=== PATIENT | male | born 1980 | race Caucasian/White ===

== ENCOUNTER → 2023-10-22 15:24 | Outpatient (BNVA) | payer OTHER, SELFPAY | PROVIDERS: Family Provider Registered Nurse; PCP Registered Nurse; Visit Provider Registered Nurse | DX: Z13.1 Encounter for screening for diabetes mellitus (principal); N52.9 Male erectile dysfunction, unspecified | CPT/HCPCS: 80053; 83036; 85025; 87491; 87591 ==

== ENCOUNTER 2024-02-27 02:01 | Emergency (ER) | payer OTHER, SELFPAY ==
[2024-02-27] VITALS (7 sets, daily range): BP systolic 110–147; BP diastolic 71–109; PULSE 76–111; RESP 16; TEMP 36.4; O2SAT 97–100; BMI 29.7
[2024-02-27 02:35] LABS: Basophils % 0.3 %; Eosinophils # 0.2 10^3/uL (0.0-0.8); Eosinophils % 2.1 %; Hematocrit 46.5 % (37-53); Lymphocytes # 2.1 10^3/uL (0.8-4.8); Lymphocytes % 18.3 %; Mean Corpuscular Hemoglobin 28.9 pg (27-33); Mean Platelet Volume 9.1 fL (7.4-10.4); Monocytes % 8.5 %; Neutrophils # 7.87 10^3/uL (1.8-7.7); Neutrophils % 70.4 %; Nucleated Red Blood Cells % 0 %; Platelet Count 384 10^3/cmm (157-399); Red Blood Count 5.47 10^6/uL (3.85-5.65); Red Cell Distribution Width 11.9 % (12.1-15.1); White Blood Count 11.18 10^3/uL (3.29-11.43)
[2024-02-27 02:58] LABS: Alanine Aminotransferase 45 U/L (0-41); Albumin Level 4.5 g/dL (3.5-5.2); Alkaline Phosphatase 134 U/L (40-130); Anion Gap 14.1 (5-19); Aspartate Amino Transferase 28 U/L (0-40); Blood Urea Nitrogen 15 mg/dL (6-20); C Reactive Protein 7.4 mg/L (0.0-4.9); Calcium 10.1 mg/dL (8.5-10.5); Carbon Dioxide 28 mmol/L (22-29); Chloride 101 mmol/L (98-107); Globulin 3.3 g/dL (1.3-4.6); Glomerular Filtration Rate 92.1 mL/min (90-130); Glucose 123 mg/dL (65-115); Lipase 27 U/L (13-60); Osmolality Calculated 290 mOsm/kg (285-295); Potassium 4.1 mmol/L (3.5-5.1); Sodium 139 mmol/L (136-145); Total Bilirubin 0.3 mg/dL (0.15-1.2); Total Protein 7.8 g/dL (6.6-8.7)
[2024-02-27 03:00] LABS: Lactic Sepsis W/Reflex 2.2 mmol/L (0.5-2.2)
--- NOTE | 2024-02-27 03:10 | CTR_ITS ---
PROCEDURE INFORMATION: Exam: CT Abdomen And Pelvis With Contrast Exam date and time: 02/27/2024 3:42 AM Age: 43 years old Clinical indication: Abdominal pain; Localized; Right lower quadrant (rlq) TECHNIQUE: Imaging protocol: Computed tomography of the abdomen and pelvis with contrast. Radiation optimization: All CT scans at this facility use at least one of these dose optimization techniques: automated exposure control; mA and/or kV adjustment per patient size (includes targeted exams where dose is matched to clinical indication); or iterative reconstruction. Contrast material: OMNI 350; Contrast volume: 100 ml; Contrast route: INTRAVENOUS (IV); COMPARISON: No relevant prior studies available. RADIATION DOSE METRICS: Total DLP (mGy-cm): 771.68 FINDINGS: Lungs: Lung bases are clear as visualized. Liver: The liver is normal in appearance. Gallbladder and biliary ducts: No definite gallstones are appreciated within the gallbladder. However, the gallbladder wall is somewhat hazy suggesting wall thickening. There may be a small amount of fluid interposed between the gallbladder and liver. Findings can be seen in a cholecystitis. Recommend clinical correlation. If patient is having symptoms referable to the gallbladder, recommend correlation with ultrasound. Pancreas: Normal. No ductal dilation. Spleen: Normal. No splenomegaly. Adrenal glands: Normal. No mass. Kidneys and ureters: Normal. No hydronephrosis. Stomach and bowel: No dilated loops of large or small bowel is appreciated. No bowel wall thickening is noted. There is a moderate amount of stool within the colon. Appendix: No evidence of appendicitis. Intraperitoneal space: Unremarkable. No free air. No significant fluid collection. Vasculature: Unremarkable. No abdominal aortic aneurysm. Lymph nodes: There are a few small mesenteric, periportal and retroperitoneal lymph nodes. No enlarged nodes are appreciated. Urinary bladder: Unremarkable as visualized. Reproductive: Unremarkable as visualized. Bones/joints: Unremarkable. No acute fracture. Soft tissues: There is a tiny fat filled periumbilical hernia. CT/CT abdomen pelvis w con* [id number] IMPRESSION: 1. Some haziness to the gallbladder wall with possible small amount of fluid interposed between the gallbladder and liver. Findings could represent gallbladder inflammation. If patient is having symptoms referable to the gallbladder, recommend correlation with ultrasound. 2. Fecal stasis.
[2024-02-27 03:15] LABS: Reflex Lactate Order REFLEX LACTIC ORDERD
[2024-02-27] MEDS: iohexol 350 mg/mL 500 mL Btl (per mL) IV (03:45)
--- NOTE | 2024-02-27 04:06 | ED_ITS ---
Documented by User: Miriam Adame MD 02/27/24 04:09 HPI - Abdominal Pain 2 General: Chief Complaint: Abdominal Pain Stated Complaint: right side abdominal pain Time Seen by Provider: 02/27/24 03:53 History of Present Illness: 43-year-old man who presents emergency r oom with right-sided abdominal pain. This started about 3 hours ago. He has had some nausea but no vomiting. No dysuria. No fevers. No chest pain. No shortness of breath. He has never had anything like this before. No surgical history. No fevers. Related Data Previous Rx's Medication Instructions Recorded sildenafil 50 mg tablet (Viagra) 50 mg PO DAILY PRN sexual activity 10/25/23 30 days #10 tabs amoxicillin 875 mg-potassium 1 tab PO Q12H 10 days #20 tabs 02/27/24 clavulanate 125 mg tablet naproxen 250 mg tablet 250 mg PO BID PRN pain #20 tabs 02/27/24 ondansetron 4 mg disintegrating 4 mg PO Q6H PRN nausea and 02/27/24 tablet vomiting #14 tabs Allergies Allergy/AdvReac Type Severity Reaction Status Date / Time No Known Allergies Allergy Verified 10/22/23 14:43 Review of Systems 2 Narrative: Constitutional symptoms: Negative except as documented in HPI. Skin symptoms: Negative except as documented in HPI. Eye symptoms: Negative except as documented in HPI. ENMT symptoms: Negative except as documented in HPI. Respiratory symptoms: Negative except as documented in HPI. Cardiovascular symptoms: Negative except as documented in HPI. Gastrointestinal symptoms: Negative except as documented in HPI. Genitourinary symptoms: Negative except as documented in HPI. Musculoskeletal symptoms: Negative except as documented in HPI. Neurologic symptoms: Negative except as documented in HPI. Psychiatric symptoms: Negative except as documented in HPI. Endocrine symptoms: Negative except as documented in HPI. PFSH ED 2 PFSH: Family History Grandfather Cancer Denies family history of Diabetes Hypertension Social History Smoking and tobacco/nicotine status: current every day tobacco/nicotine user cigarettes Packs smoked per day: 1 Alcohol intake: never Substance/Drug Use: never Adopted: No Caregiver/support person: No Lives independently: No Household members: children Sexually active: Yes Do you think of yourself as: Straight/Heterosexual Current gender identity: Male Physical Exam 2 Narrative: EXAM NARRATIVE: General: Alert, no acute distress. Skin: Warm, dry. Head: Normocephalic, atraumatic. Neck: Supple, trachea midline. Eye: Extraocular movements are intact. Ears, nose, mouth and throat: mucosa moist. Cardiovascular: Regular, Normal peripheral perfusion. Respiratory: Lungs are clear to auscultation, respirations are non-labored, breath sounds are equal, Symmetrical chest wall expansion. Gastrointestinal: Soft, right upper quadrant tenderness to palpation with some lesser tenderness in the lower right abdomen, Non distended Musculoskeletal: Normal ROM, no deformity. Neurological: Alert and oriented, No focal neurological deficit observed. Psychiatric: Cooperative, appropriate mood & affect. Course 2 Vital Signs: Vital signs: Vital Signs Temperature 97.6 F 02/27/24 02:23 Pulse Rate 111 H 02/27/24 06:30 Respiratory Rate 16 02/27/24 02:23 Blood Pressure 128/87 02/27/24 06:30 Pulse Oximetry 97 02/27/24 06:30 Oxygen Delivery Me thod Room Air 02/27/24 06:30 MDM - Abdominal Pain Medical Decision Making Differential diagnosis for patient presenting with right upper quadrant abdominal pain including but not limited to and based on the above HPI, review of systems and physical exam: Cholelithiasis or cholecystitis. Hepatitis. Diverticulitis. Constipation. Ureterolithiasis. Urinary tract infection. Appendicitis. colitis. small bowel obstruction. crohn's flare. pancreatitis. gastritis. peptic ulcer. Aortic disection. Workup including imaging and lab work replaced based on the above differential, history and exam to evaluate differential diagnosis Lab Review: Laboratory results were reviewed and interpreted by myself the emergency room physician. Mild leukocytosis with white count of 11,000. No anemia. No renal failure. Liver enzymes are normal. CRP is mildly elevated at 7. Lipase is negative. Lab Data 02/27/24 02:18 02/27/24 02:18 Labs/Radiology: Radiology Impressions Abdomen/Pelvis CT 02/27/24 03:10 IMPRESSION: 1. Some haziness to the gallbladder wall with possible small amount of fluid interposed between the gallbladder and liver. Findings could represent gallbladder inflammation. If patient is having symptoms referable to the gallbladder, recommend correlation with ultrasound. 2. Fecal stasis. Laboratory Results WBC 11.18 10^3/uL (3.29-11.43) 02/27/24 02:18 RBC 5.47 10^6/uL (3.85-5.65) 02/27/24 02:18 Hgb 15.80 g/dL (11.27-16.99) 02/27/24 02:18 Hct 46.5 % (37-53) 02/27/24 02:18 MCV 85.0 fl (82-101) 02/27/24 02:18 MCH 28.9 pg (27-33) 02/27/24 02:18 MCHC 34.0 g/dL (30-55) 02/27/24 02:18 RDW 11.9 % (12.1-15.1) L 02/27/24 02:18 Plt Count 384 10^3/cmm (157-399) 02/27/24 02:18 MPV 9.1 fL (7.4-10.4) 02/27/24 02:18 Neut % (Auto) 70.4 % 02/27/24 02:18 Lymph % (Auto) 18.3 % 02/27/24 02:18 [place] % (Auto) 8.5 % 02/27/24 02:18 Eos % (Auto) 2.1 % 02/27/24 02:18 Baso % (Auto) 0.3 % 02/27/24 02:18 Neut # (Auto) 7.87 10^3/uL (1.8-7.7) H 02/27/24 02:18 Lymph # (Auto) 2.1 10^3/uL (0.8-4.8) 02/27/24 02:18 [place] # (Auto) 1.0 10^3/uL (0.2-0.9) H 02/27/24 02:18 Eos # (Auto) 0.2 10^3/uL (0.0-0.8) 02/27/24 02:18 Baso # (Auto) 0.0 10^3/uL (0.0-0.1) 02/27/24 02:18 Nucleated RBC % (auto) 0 % 02/27/24 02:18 Nucleated RBCs # 0.0 /100WBC 02/27/24 02:18 Sodium 139 mmol/L (136-145) 02/27/24 02:18 Potassium 4.1 mmol/L (3.5-5.1) 02/27/24 02:18 Chloride 101 mmol/L (98-107) 02/27/24 02:18 Carbon Dioxide 28 mmol/L (22-29) 02/27/24 02:18 Anion Gap 14.1 (5-19) 02/27/24 02:18 BUN 15 mg/dL (6-20) 02/27/24 02:18 Creatinine 0.9 mg/dL (0.7-1.2) 02/27/24 02:18 GFR Calculation 92.1 mL/min (90-130) 02/27/24 02:18 Glucose 123 mg/dL (65-115) H 02/27/24 02:18 Calculated Osmolality 290 mOsm/kg (285-295) 02/27/24 02:18 Lactic Acid 2.2 mmol/L (0.5-2.2) 02/27/24 02:18 Lactic Acid (Sepsis) 1.7 mmol/L (0.5-2.2) 02/27/24 04:55 Calcium 10.1 mg/dL (8.5-10.5) 02/27/24 02:18 Total Bilirubin 0.3 mg/dL (0.15-1.2) 02/27/24 02:18 AST 28 U/L (0-40) 02/27/24 02:18 ALT 45 U/L (0-41) H 02/27/24 02:18 Alkaline Phosphatase 134 U/L (40-130) H 02/27/24 02:18 C-Reactive Protein 7.4 mg/L (0.0-4.9) H 02/27/24 02:18 Total Protein 7.8 g/dL (6.6-8.7) 02/27/24 02:18 Albumin 4.5 g/dL (3.5-5.2) 02/27/24 02:18 Globulin 3.3 g/dL (1.3-4.6) 02/27/24 02:18 Lipase 27 U/L (13-60) 02/27/24 02:18 Urine Color Yellow (Yellow) 02/27/24 04:15 Urine Appearance Turbid (CLEAR) A 02/27/24 04:15 Urine pH 8.5 (5-7) A 02/27/24 04:15 Ur Specific [place] 1.045 (1.005-1.030) H 02/27/24 04:15 Urine Protein Negative (Negative) 02/27/24 04:15 Urine Glucose (UA) Negative (Normal) 02/27/24 04:15 Urine Ketones Negative (Negative) 02/27/24 04:15 Urine Blood Negative (Negative) 02/27/24 04:15 Urine Nitrate Negative (Negative) 02/27/24 04:15 Urine Bilirubin Negative (Negative) 02/27/24 04:15 Urine Urobilinogen 1.0 mg/dL (Negative) 02/27/24 04:15 Ur Leukocyte Esterase Negative (Negative) 02/27/24 04:15 Urine RBC 0-2 /hpf (0-2) 02/27/24 04:15 Urine WBC 0-5 /hpf (0-5) 02/27/24 04:15 Ur Squamous Epith Cells 0-5 /hpf (0-5) 02/27/24 04:15 Amorphous Sediment Not Reportable 02/27/24 04:15 Urine Bacteria None seen /hpf (NONE) 02/27/24 04:15 Hyaline Casts 0-4 /lpf H 02/27/24 04:15 Discharge Plan Discharge Patient Disposition: Home Clinical Impression: Acute cholecystitis Condition: Stable Prescriptions: New naproxen 250 mg tablet 250 mg PO BID PRN (Reason: pain) Qty: 20 0RF ondansetron 4 mg tablet,disintegrating 4 mg PO Q6H PRN (Reason: nausea and vomiting) Qty: 14 0RF amoxicillin-pot clavulanate 875-125 mg tablet 1 tab PO Q12H 10 Days Qty: 20 0RF No Action sildenafil [Viagra] 50 mg tablet 50 mg PO DAILY PRN (Reason: sexual activity) 30 Days Qty: 10 2RF Rx Instructions: administer 30 minutes to 4 hours before activity Discharge Orders: Discharge ED (Routine); Ordered 02/27/24 Ordered By: Kristian Palmer Referrals: Anil Sifuentes MD [Physician] - 03/02/24 (cholecystitis) Ramiro Iraheta FNP [Primary Care Provider] - Discharge Diet: Low Fat Discharge Activity: Increase activity as tolerated Patient Instructions: Cholecystitis (ED), Low Fat Diet (ED) Activity Restrictions/Additional Instructions: 1. Take antibiotics as prescribed. 2. Eat an extremely low-fat or no fat diet for the next 5 days 3. Return to ER for fever, increasing pain or pain that is not improving in, vomiting (unable to keep down meds/fluids). See handout for more details. 4. Follow-up with Dr. Mccoy on Friday 03/02. Please call ahead to schedule an appointment. 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 Fwd Documented by User: Kristian Palmer MD 02/27/24 07:06 HPI - Abdominal Pain 2 General: Chief Complaint: Abdominal Pain Stated Complaint: right side abdominal pain Time Seen by Provider: 02/27/24 03:53 Related Data Previous Rx's Medication Instructions Recorded sildenafil 50 mg tablet (Viagra) 50 mg PO DAILY PRN sexual activity 10/25/23 30 days #10 tabs amoxicillin 875 mg-potassium 1 tab PO Q12H 10 days #20 tabs 02/27/24 clavulanate 125 mg tablet naproxen 250 mg tablet 250 mg PO BID PRN pain #20 tabs 02/27/24 ondansetron 4 mg disintegrating 4 mg PO Q6H PRN nausea and 02/27/24 tablet vomiting #14 tabs Allergies Allergy/AdvReac Type Severity Reaction Status Date / Time No Known Allergies Allergy Verified 10/22/23 14:43 PFSH ED 2 PFSH: Family History Grandfather Cancer Denies family history of Diabetes Hypertension Social History Smoking and tobacco/nicotine status: current every day tobacco/nicotine user cigarettes Packs smoked per day: 1 Alcohol intake: never Substance/Drug Use: never Adopted: No Caregiver/support person: No Lives independently: No Household members: children Sexually active: Yes Do you think of yourself as: Straight/Heterosexual Current gender identity: Male Course 2 Reevaluation(s): Reevaluation #1: Patient was seen by Dr. Mccoy at bedside in the emergency department. He suspects the patient has a mild acute case of cholecystitis. He discussed with the patient and offered options including surgical management versus trial of antibiotics and diet modification. The patient reports he is feeling better after Toradol. He is already gotten a dose of Zosyn. He decided that he wanted to do nonsurgical intervention first. He is had episodes like this flareup in the past and they have gone away. He reports that he is willing to return to the emergency department if the pain persists, worsens, fever, or other worsening signs of cholecystitis. Patient's US does show gallstones, mild pericholecystic fluid, and GB wall ULN. Patient is aware of his diagnosis and has medical decision making capacity. He says he is not 1 to wall into decisions. He did rather give this a little bit of time. Will discharge home with Augmentin and Zofran. Follow-up with Dr. Mccoy on Saturday. No fat diet Vital Signs: Vital signs: Vital Signs Temperature 97.6 F 02/27/24 02:23 Pulse Rate 111 H 02/27/24 06:30 Respiratory Rate 16 02/27/24 02:23 Blood Pressure 128/87 02/27/24 06:30 Pulse Oximetry 97 02/27/24 06:30 Oxygen Delivery Me thod Room Air 02/27/24 06:30 MDM - Abdominal Pain Lab Data 02/27/24 02:18 02/27/24 02:18 Labs/Radiology: Radiology Impressions Abdomen/Pelvis CT 02/27/24 03:10 IMPRESSION: 1. Some haziness to the gallbladder wall with possible small amount of fluid interposed between the gallbladder and liver. Findings could represent gallbladder inflammation. If patient is having symptoms referable to the gallbladder, recommend correlation with ultrasound. 2. Fecal stasis. Laboratory Results WBC 11.18 10^3/uL (3.29-11.43) 02/27/24 02:18 RBC 5.47 10^6/uL (3.85-5.65) 02/27/24 02:18 Hgb 15.80 g/dL (11.27-16.99) 02/27/24 02:18 Hct 46.5 % (37-53) 02/27/24 02:18 MCV 85.0 fl (82-101) 02/27/24 02:18 MCH 28.9 pg (27-33) 02/27/24 02:18 MCHC 34.0 g/dL (30-55) 02/27/24 02:18 RDW 11.9 % (12.1-15.1) L 02/27/24 02:18 Plt Count 384 10^3/cmm (157-399) 02/27/24 02:18 MPV 9.1 fL (7.4-10.4) 02/27/24 02:18 Neut % (Auto) 70.4 % 02/27/24 02:18 Lymph % (Auto) 18.3 % 02/27/24 02:18 [place] % (Auto) 8.5 % 02/27/24 02:18 Eos % (Auto) 2.1 % 02/27/24 02:18 Baso % (Auto) 0.3 % 02/27/24 02:18 Neut # (Auto) 7.87 10^3/uL (1.8-7.7) H 02/27/24 02:18 Lymph # (Auto) 2.1 10^3/uL (0.8-4.8) 02/27/24 02:18 [place] # (Auto) 1.0 10^3/uL (0.2-0.9) H 02/27/24 02:18 Eos # (Auto) 0.2 10^3/uL (0.0-0.8) 02/27/24 02:18 Baso # (Auto) 0.0 10^3/uL (0.0-0.1) 02/27/24 02:18 Nucleated RBC % (auto) 0 % 02/27/24 02:18 Nucleated RBCs # 0.0 /100WBC 02/27/24 02:18 Sodium 139 mmol/L (136-145) 02/27/24 02:18 Potassium 4.1 mmol/L (3.5-5.1) 02/27/24 02:18 Chloride 101 mmol/L (98-107) 02/27/24 02:18 Carbon Dioxide 28 mmol/L (22-29) 02/27/24 02:18 Anion Gap 14.1 (5-19) 02/27/24 02:18 BUN 15 mg/dL (6-20) 02/27/24 02:18 Creatinine 0.9 mg/dL (0.7-1.2) 02/27/24 02:18 GFR Calculation 92.1 mL/min (90-130) 02/27/24 02:18 Glucose 123 mg/dL (65-115) H 02/27/24 02:18 Calculated Osmolality 290 mOsm/kg (285-295) 02/27/24 02:18 Lactic Acid 2.2 mmol/L (0.5-2.2) 02/27/24 02:18 Lactic Acid (Sepsis) 1.7 mmol/L (0.5-2.2) 02/27/24 04:55 Calcium 10.1 mg/dL (8.5-10.5) 02/27/24 02:18 Total Bilirubin 0.3 mg/dL (0.15-1.2) 02/27/24 02:18 AST 28 U/L (0-40) 02/27/24 02:18 ALT 45 U/L (0-41) H 02/27/24 02:18 Alkaline Phosphatase 134 U/L (40-130) H 02/27/24 02:18 C-Reactive Protein 7.4 mg/L (0.0-4.9) H 02/27/24 02:18 Total Protein 7.8 g/dL (6.6-8.7) 02/27/24 02:18 Albumin 4.5 g/dL (3.5-5.2) 02/27/24 02:18 Globulin 3.3 g/dL (1.3-4.6) 02/27/24 02:18 Lipase 27 U/L (13-60) 02/27/24 02:18 Urine Color Yellow (Yellow) 02/27/24 04:15 Urine Appearance Turbid (CLEAR) A 02/27/24 04:15 Urine pH 8.5 (5-7) A 02/27/24 04:15 Ur Specific [place] 1.045 (1.005-1.030) H 02/27/24 04:15 Urine Protein Negative (Negative) 02/27/24 04:15 Urine Glucose (UA) Negative (Normal) 02/27/24 04:15 Urine Ketones Negative (Negative) 02/27/24 04:15 Urine Blood Negative (Negative) 02/27/24 04:15 Urine Nitrate Negative (Negative) 02/27/24 04:15 Urine Bilirubin Negative (Negative) 02/27/24 04:15 Urine Urobilinogen 1.0 mg/dL (Negative) 02/27/24 04:15 Ur Leukocyte Esterase Negative (Negative) 02/27/24 04:15 Urine RBC 0-2 /hpf (0-2) 02/27/24 04:15 Urine WBC 0-5 /hpf (0-5) 02/27/24 04:15 Ur Squamous Epith Cells 0-5 /hpf (0-5) 02/27/24 04:15 Amorphous Sediment Not Reportable 02/27/24 04:15 Urine Bacteria None seen /hpf (NONE) 02/27/24 04:15 Hyaline Casts 0-4 /lpf H 02/27/24 04:15 XR interpretation done by ED provider, pending radiology final review (US images were lost (hard drive failed); they were recaptured by US tech; I viewed images in real time) Discharge Plan Discharge Patient Disposition: Home Clinical Impression: Acute cholecystitis Condition: Stable Prescriptions: New naproxen 250 mg tablet 250 mg PO BID PRN (Reason: pain) Qty: 20 0RF ondansetron 4 mg tablet,disintegrating 4 mg PO Q6H PRN (Reason: nausea and vomiting) Qty: 14 0RF amoxicillin-pot clavulanate 875-125 mg tablet 1 tab PO Q12H 10 Days Qty: 20 0RF No Action sildenafil [Viagra] 50 mg tablet 50 mg PO DAILY PRN (Reason: sexual activity) 30 Days Qty: 10 2RF Rx Instructions: administer 30 minutes to 4 hours before activity Discharge Orders: Discharge ED (Routine); Ordered 02/27/24 Ordered By: Kristian Palmer Referrals: Anil Sifuentes MD [Physician] - 03/02/24 (cholecystitis) Ramiro Iraheta FNP [Primary Care Provider] - Discharge Diet: Low Fat Discharge Activity: Increase activity as tolerated Patient Instructions: Cholecystitis (ED), Low Fat Diet (ED) Activity Restrictions/Additional Instructions: 1. Take antibiotics as prescribed. 2. Eat an extremely low-fat or no fat diet for the next 5 days 3. Return to ER for fever, increasing pain or pain that is not improving in, vomiting (unable to keep down meds/fluids). See handout for more details. 4. Follow-up with Dr. Mccoy on Friday 03/02. Please call ahead to schedule an appointment. 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
[2024-02-27 04:40] LABS: Bilirubin Urine Negative (Negative); Blood Urine Negative (Negative); Glucose Urine UA Negative (Normal); Ketones Urine Negative (Negative); Leukocyte Esterase Urine Negative (Negative); Nitrate Urine Negative (Negative); Protein Urine Negative (Negative); Urine Appearance Turbid (CLEAR); Urine Color Yellow (Yellow); pH Urine 8.5 (5-7)
[2024-02-27 04:45] LABS: Bacteria Urine None Seen /hpf; Hyaline Casts Urine 0-4 /lpf; RBC Urine 0-2 /hpf (0-2); Squamous Epithelial Cell Urine 0-5 /hpf (0-5); WBC Urine 0-5 /hpf (0-5)
[2024-02-27 04:46] LABS: Specific Gravity, Urine 1.045 (1.005-1.030)
[2024-02-27] MEDS: ketorolac 30 mg/mL INJ IVP (05:09)
[2024-02-27 05:18] LABS: Lactic Acid level (Lactate) 1.7 mmol/L (0.5-2.2)
--- NOTE | 2024-02-27 05:46 | US_ITS ---
WS: [id number] RIGHT UPPER QUADRANT ULTRASOUND HISTORY: Right upper quadrant pain, concern for cholecystitis COMPARISON: None available. Liver: 15.3 cm in length. Normal size liver and echogenicity. No bile duct dilatation or mass. Portal Vein: Normal hepatopetal flow with monophasic waveform. Gallbladder: Several small stones are present within the gallbladder. No significant gallbladder hydr ops. There is mild wall thickening and small amount of edema noted adjacent to the gallbladder. CBD: 0.4 cm Pancreas: Not visualized. Right kidney: 12.2 cm in length. Normal size and echogenicity. No hydronephrosis or mass. Aorta and IVC: Unremarkable abdominal aorta and IVC. No ascites. US/US gall bladder [id number] IMPRESSION: 1. Cholelithiasis with additional changes consistent with early acute cholecys titis. 2. No common bile duct dilatation.
[2024-02-27] MEDS: piperacillin-tazobactam 4.5 GM in sodium chloride 0.9% (plus) 50 ML IV (06:10)
--- NOTE | 2024-02-27 07:03 | P.CONIM_ITS ---
Providers/Reason For Consult 2 Consulting Physician/Specialty*: General Surgery Reason for Consult*: Acute cholecystitis Primary Care Provider: LUZ MARIA Dia History of Present Illness History of Present Illness Fish Garcia is a 43 year old male Who presents to the emergency department complaining of right upper quadrant plain Interval started last night after he got a milkshake. Pain was constant so he decided to present to the ED, in the emergency department laboratory work Was unremarkable but he was tender in the right upper quadrant so a CAT scan was obtained CAT scan showed mild haziness of the gallbladder wall indicating possible early inflammation. I was consulted for this finding Review of Systems 2 General: Reports: 10 or more systems reviewed and unremarkable except in HPI and below Medications/Allergies Home Medications Medication Instructions Recorded Confirmed Last Taken Type sildenafil 50 mg tablet (Viagra) 50 mg PO DAILY PRN sexual activity 10/25/23 Unknown Rx 30 days #10 tabs amoxicillin 875 mg-potassium 1 tab PO Q12H 10 days #20 tabs 02/27/24 Unknown Rx clavulanate 125 mg tablet naproxen 250 mg tablet 250 mg PO BID PRN pain #20 tabs 02/27/24 Unknown Rx ondansetron 4 mg disintegrating 4 mg PO Q6H PRN nausea and 02/27/24 Unknown Rx tablet vomiting #14 tabs Allergies Allergy/AdvReac Type Severity Reaction Status Date / Time No Known Allergies Allergy Verified 10/22/23 14:43 PFSH Acute 2 PFSH: Family History Grandfather Cancer Denies family history of Diabetes Hypertension Social History Smoking and tobacco/nicotine status: current every day tobacco/nicotine user cigarettes Packs smoked per day: 1 Alcohol intake: never Substance/Drug Use: never Adopted: No Caregiver/support person: No Lives independently: No Household members: children Sexually active: Yes Do you think of yourself as: Straight/Heterosexual Current gender identity: Male Vitals/I&O/Wt Last Vital Signs Temp 97.6 F 02/27/24 02:23 Pulse 111 H 02/27/24 06:30 Resp 16 02/27/24 02:23 BP 128/87 02/27/24 06:30 Pulse Ox 97 02/27/24 06:30 O2 Del Method Room Air 02/27/24 06:30 02/26/24 02/27/24 02/27/24 22:59 06:59 14:59 Intake Total 0 / 0 Balance 0 / 0 Weight last 48 hrs Weight 190 lb Physical Exam 2 Narrative: General : Patient is well developed , no acute distress, oriented x3 Head : Normal cephalic, a-traumatic. Nose : Mucous membranes are without erythema. Lungs : Equal chest rise bilaterally, no use of accessory muscles, trachea is midline. CV : Rate and rhythm are normal. Abdomen : Soft, Mild tenderness in the right upper quadrant, No Roberts sign during my evaluation Extremities : No edema. Upper extremities are normal bilaterally. Back : non-tender to palpation, no CVA tenderness. Data 02/27/24 02:18 02/27/24 02:18 A&P Assessment and plan (1) Acute cholecystitis: Plan After complete history physical examination and review of all available clinical data the following is my assessment. I think patient clinical picture is consistent with a mild grade 1 acute appendicitis. I was at the bedside when the ultrasound was being done, the gallbladder wall measures about 4 mm which is within normal limits of normal there is a very minimal amount of pericholecystic fluid, this is consistent with the possibility of an early cholecystitis. With this findings I have decided to offer the patient a laparoscopic cholecystectomy, I discussed all recent benefits of the procedure with the patient. After discussion with the patient he has about alternative options for management of his pathology as he does not want to proceed with surgery at this time, according to the patient he would like to do an elective setting, he would like to talk with the family and decide later. I have explained that we can do an attempt to IV antibiotics to manage the initial inflammation but he eventually will still need to have his gallbladder removed. Patient also requested to proceed with p.o. antibiotics at home, he will like to monitor his symptoms at home and return to the hospital as needed. I have explained to the patient that this can put him at higher risk of requiring emergent surgery in the future, I have also explained that once the inflammation is settled there may be a higher risk of injuring structures around the gallbladder. He shows understanding and he is adamant that he will prefer to get antibiotic therapy and follow-up as outpatient. We will start IV antibiotics in the hospital and then we will discharge the patient with twice a day Augmentin Zofran and pain medication. Patient has been instructed to return to the ER if he has fever chills continues abdominal pain or worsening of his symptoms. Coding Level of Care Code Acute Code for [facility] Diagnoses Acute cholecystitis K81.0
== END 2024-02-27 07:32 | disposition home or self-care (01) ==
PROVIDERS: Emergency Provider Emergency Medicine; Family Provider Registered Nurse; PCP Registered Nurse
DX: K81.0 Acute cholecystitis (principal); F17.210 Nicotine dependence, cigarettes, uncomplicated
CPT/HCPCS: 36415; 74177; 76705; 80053; 81001; 83605; 83690; 85025; 86140; 96365; 96375; 99285; J1100; J1171; J1885; J2250; J2405; J2543; J2704; J3010; J3490

== ENCOUNTER 2024-02-27 14:07 | Observation (INO) | payer OTHER, SELFPAY ==
[2024-02-27] VITALS (18 sets, daily range): BP systolic 90–126; BP diastolic 40–86; PULSE 87–130; RESP 15–18; TEMP 36.2–36.9; O2SAT 92–100; BMI 29.7; BMI 30.1
--- NOTE | 2024-02-27 15:00 | W.ED.ABDPA2 ---
HPI - Abdominal Pain General: Chief Complaint: Abdominal Pain Stated Complaint: gallbladder problems Time Seen by Provider: 02/27/24 14:55 History of Present Illness: Patient was here overnight last night with right upper quadrant pain and nausea. Patient was diagnosed with early acute cholecystitis. Patient did not want to be admitted for surgery and wanted to try antibiotics and fat-free diet. He was discharged after seeing the surgeon with Augmentin and NSAIDs. Patient reports he took a dose of Augmentin and naproxen around noon with some rory dennise and water. Unfortunately, he is continued to get worse this afternoon and has pretty severe pain at this point. Patient has changes mind and wants to proceed with surgical treatment Related Data Previous Rx's Medication Instructions Recorded sildenafil 50 mg tablet (Viagra) 50 mg PO DAILY PRN sexual activity 10/25/23 30 days #10 tabs amoxicillin 875 mg-potassium 1 tab PO Q12H 10 days #20 tabs 02/27/24 clavulanate 125 mg tablet naproxen 250 mg tablet 250 mg PO BID PRN pain #20 tabs 02/27/24 ondansetron 4 mg disintegrating 4 mg PO Q6H PRN nausea and 02/27/24 tablet vomiting #14 tabs Allergies Allergy/AdvReac Type Severity Reaction Status Date / Time No Known Allergies Allergy Verified 02/27/24 14:22 Review of Systems General: Reports: 10 or more systems reviewed and unremarkable except in HPI and below Narrative: Right upper quadrant pain, nausea, pain radiating towards the right lateral abdomen PFSH ED PFSH: Family History Grandfather Cancer Denies family history of Diabetes Hypertension Social History Smoking and tobacco/nicotine status: current every day tobacco/nicotine user cigarettes Packs smoked per day: 1 Alcohol intake: never Substance/Drug Use: never Adopted: No Caregiver/support person: No Lives independently: No Household members: children Sexually active: Yes Do you think of yourself as: Straight/Heterosexual Current gender identity: Male Physical Exam Narrative: EXAM NARRATIVE: Alert, oriented, normal mental status. Appears to be in moderate distress. He prefers to lay in a curled position. He has a positive Roberts sign with some guarding. He is heart rate is elevated. Const: COMMON NORMALS: no limitations, alert and well nourished EXAM LIMITATIONS: no altered mental status HENMT: COMMON NORMALS: normocephalic, atraumatic and external ears normal HEAD & SCALP: normocephalic and atraumatic EXTERNAL EAR: Yes external ears normal MOUTH: no muffled voice Eye: COMMON NORMALS: EOMs intact bilaterally, conjunctivae normal and no scleral icterus CONJUNCTIVA: Yes conjunctivae normal Neck/C-Spine: GENERAL: Yes normal visual inspection and Yes trachea midline Resp: COMMON NORMALS: normal respiratory effort, No use of accessory muscles and clear to auscultation bilaterally AUSCULTATION: clear to auscultation bilaterally Extremity: COMMON NORMALS: normal to inspection Neuro: COMMON NORMALS: moves all extremities, no focal motor deficits and no sensory deficits noted SENSORIUM/ORIENTATION: Yes alert SPEECH: speech normal Psych: COMMON NORMALS: mental status grossly normal, Normal thought process present, cooperative, normal affect and speech normal SPEECH: Yes normal speech THOUGHT PROCESS: Normal thought process present Skin: COMMON NORMALS: no rashes or lesions noted, turgor normal and no jaundice GENERAL SKIN EXAM: no rashes or lesions noted and turgor normal Course Vital Signs: Vital signs: Vital Signs Temperature 98.2 F 02/27/24 14:16 Pulse Rate 130 H 02/27/24 14:16 Blood Pressure 121/80 02/27/24 14:16 Pulse Oximetry 100 02/27/24 14:16 Oxygen Delivery Me thod Room Air 02/27/24 14:16 MDM - Abdominal Pain Medical Decision Making Patient has acute cholecystitis. He failed a trial of outpatient management with antibiotics and diet modification. I have notified Dr. Dr. Sifuentes who intends to see the patient in the emergency department and take him for surgery. No radiology studies performed this visit Discharge Plan Discharge Condition: Stable Prescriptions: No Action sildenafil [Viagra] 50 mg tablet 50 mg PO DAILY PRN (Reason: sexual activity) 30 Days Qty: 10 2RF Rx Instructions: administer 30 minutes to 4 hours before activity naproxen 250 mg tablet 250 mg PO BID PRN (Reason: pain) Qty: 20 0RF ondansetron 4 mg tablet,disintegrating 4 mg PO Q6H PRN (Reason: nausea and vomiting) Qty: 14 0RF amoxicillin-pot clavulanate 875-125 mg tablet 1 tab PO Q12H 10 Days Qty: 20 0RF Coding Level of Care Code ED Event Marketing Representative for Katy Ruano
--- NOTE | 2024-02-27 15:24 | P.HP_ITS ---
Providers/Chief Complaint Admitting Physician: Anil Sifuentes MD Primary Care Provider: LUZ MARIA Dia Chief Complaint: gallbladder problems History of Present Illness Fish Garcia is a 43 year old male who presents to the hospital with right upper quadrant abdominal pain. He was here earlier this morning he was diagnosed acute cholecystitis, at the time I offered surgery but the patient decided to go home on antibiotics. Now returns with worsening symptoms. Review of Systems General: Reports: 10 or more systems reviewed and unremarkable except in HPI and below Medications/Allergies Home Medications Medication Instructions Recorded Confirmed Last Taken Type sildenafil 50 mg tablet (Viagra) 50 mg PO DAILY PRN sexual activity 10/25/23 02/27/24 Unknown Rx 30 days #10 tabs amoxicillin 875 mg-potassium 1 tab PO Q12H 10 days #20 tabs 02/27/24 02/27/24 Unknown Rx clavulanate 125 mg tablet naproxen 250 mg tablet 250 mg PO BID PRN pain #20 tabs 02/27/24 02/27/24 Unknown Rx ondansetron 4 mg disintegrating 4 mg PO Q6H PRN nausea and 02/27/24 02/27/24 Unknown Rx tablet vomiting #14 tabs Allergies Allergy/AdvReac Type Severity Reaction Status Date / Time No Known Allergies Allergy Verified 02/27/24 14:22 PFSH Acute PFSH: Family History Grandfather Cancer Denies family history of Diabetes Hypertension Social History Smoking and tobacco/nicotine status: current every day tobacco/nicotine user cigarettes Packs smoked per day: 1 Alcohol intake: never Substance/Drug Use: never Adopted: No Caregiver/support person: No Lives independently: No Household members: children Sexually active: Yes Do you think of yourself as: Straight/Heterosexual Current gender identity: Male Vitals/I&O/Wt Last Vital Signs Temp 98.2 F 02/27/24 14:16 Pulse 130 H 02/27/24 14:16 BP 121/80 02/27/24 14:16 Pulse Ox 100 02/27/24 14:16 O2 Del Method Room Air 02/27/24 14:16 Weight last 48 hrs Weight 190 lb Physical Exam Narrative: General : Patient is well developed , no acute distress, oriented x3 Head : Normal cephalic, a-traumatic. Nose : Mucous membranes are without erythema. Lungs : Equal chest rise bilaterally, no use of accessory muscles, trachea is midline. CV : Rate and rhythm are normal. Abdomen : Soft, there is tenderness in the right upper quadrant. Extremities : No edema. Upper extremities are normal bilaterally. Back : non-tender to palpation, no CVA tenderness. A&P Assessment and plan (1) Acute cholecystitis: Plan This is a 43-year-old male who presents to the hospital with acute right upper quadrant abdominal pain, imaging and laboratory findings are consistent with acute cholecystitis. After discussion of all risk benefits documented my preop note we decided to proceed to the operating room for a laparoscopic, possible open cholecystectomy. All the risk and benefits of the procedure were discussed with the patient including the risks of bleeding, infection, damage to surrounding structures including liver, duodenum, colon, risk of injuring bile ducts requiring extensive surgery at higher level of care facility, risk of retained stones, bile leak, bili Zohreh, need for subtotal cholecystectomy, hernia and wound related complications, need to conversion to open procedure. Patient shows understanding and would like to proceed. Depending on operative findings patient may be able to go home today versus staying overnight in house. Attestations Medical Necessity Statement*: Pending OR findings Coding Level of Care Code Acute Code for [facility] Diagnoses Acute cholecystitis K81.0
--- NOTE | 2024-02-27 15:25 | ANES.PREANE2 ---
Pre-Anesthetic Assessment Height/Weight: Height 1.7 m Weight 86.183 kg Temp Pulse BP Pulse Ox O2 Del Method 98.2 F 123 H 116/77 98 Room Air 02/27/24 14:16 02/27/24 15:03 02/27/24 15:03 02/27/24 15:03 02/27/24 15:03 Operation Date: 02/27/24 15:30 Proposed Procedures p Laparoscopic Cholecystectomy(Not Applicable) - Anil Sifuentes MD Familial anesthetic complications: None Was Beta David taken within 24 hours: N/A Was Clonidine taken within 24 hours: N/A Last intake: Sip of rory at 1200 Social Tobacco and No alcohol Exam alert, oriented x 3, clear to auscultation bilaterally and regular rate & rhythm Airway Mallampati: Class III Dentition: other (very poor dentition, multiple missing and broken) Comments: Comments: Protruding jaw Anesthetic Plan ASA status: 2 Anesthesia: General Risk of > 500 ml blood loss (7ml/kg in children): No Medications/Allergies Home Medications Medication Instructions Recorded Confirmed Last Taken Type sildenafil 50 mg tablet (Viagra) 50 mg PO DAILY PRN sexual activity 10/25/23 02/27/24 Unknown Rx 30 days #10 tabs amoxicillin 875 mg-potassium 1 tab PO Q12H 10 days #20 tabs 02/27/24 02/27/24 Unknown Rx clavulanate 125 mg tablet naproxen 250 mg tablet 250 mg PO BID PRN pain #20 tabs 02/27/24 02/27/24 Unknown Rx ondansetron 4 mg disintegrating 4 mg PO Q6H PRN nausea and 02/27/24 02/27/24 Unknown Rx tablet vomiting #14 tabs Allergies Allergy/AdvReac Type Severity Reaction Status Date / Time No Known Allergies Allergy Verified 02/27/24 14:22 PFSH Anesthesia Family History Grandfather Cancer Denies family history of Diabetes Hypertension Social History Smoking and tobacco/nicotine status: current every day tobacco/nicotine user cigarettes Packs smoked per day: 1 Alcohol intake: never Substance/Drug Use: never Adopted: No Caregiver/support person: No Lives independently: No Household members: children Sexually active: Yes Do you think of yourself as: Straight/Heterosexual Current gender identity: Male Data Anesthesia Cardiac Studies: No Data to Display
[2024-02-27] MEDS: piperacillin-tazobactam 3.375 GM in sodium chloride 0.9% (plus) 50 ML IV ×2 (15:39→21:59)
[2024-02-27] MEDS: BUPivacaine 0.25% INJ 10 mL INJECTION (16:13)
[2024-02-27] MEDS: lidocaine-epi 1% 20 mL INJ 10 ML INJECTION (16:13)
--- NOTE | 2024-02-27 18:04 | PM.OP ---
Operative Report Date of procedure: February 27, 2024 Pre-op diagnosis: Acute cholecystitis Post-op diagnosis: Acute gangrenous cholecystitis Post-op findings: Gallbladder was extremely distended, the wall of the gallbladder was gangrenous, cystic duct appeared gangrenous. There were severe inflammatory adhesions from the omentum to the gallbladder. Procedure done: Laparoscopic cholecystectomy. Specimens removed/disposition: Gallbladder Surgeon: Anil Sifuentes MD Metal Hardener: [facility] Estimated blood loss: 20 Complications: none apparent Brief History: This is a 43-year-old male who presented today to the emergency room with abdominal pain and imaging show evidence of possible early acute cholecystitis. After discussion of all risk benefits documented my preop note with side to proceed to the OR for laparoscopic cholecystectomy Procedure: Patient was brought into the OR, he was placed in a supine position. The general anesthesia was given. The abdomen was prepped and draped in the usual sterile fashion and a timeout was conducted. Abdomen was accessed at the level of the left upper quadrant with a 5 mm Optiview trocar, initial pneumoperitoneum was obtained and no evidence of visceral injury during entry was noted. Additional 12 mm trocar was placed in the supraumbilical location under direct visualization, 5 mm trocars were placed in the epigastrium right upper quadrant and right flank under direct visualization. The patient was placed in a reverse Trendelenburg position with the left side down. The gallbladder was visualized in the right upper quadrant, was covered by omentum almost completely leaving only the dome of the gallbladder to be visible. The dome of the gallbladder appeared gangrenous. There was significant inflammatory adhesions from the omentum to the gallbladder, these were taken down with a combination of blunt and sharp dissection. Careful consideration was taken of not injuring any surrounding structures. I was able to take the adhesions all the way down to the lower third of the gallbladder but after these I was not able to grasp the gallbladder as it was significantly inflamed. I used a decompression needle and remove about 60 cc of bile from the gallbladder, after this I was able to grasp the gallbladder and elevated cephalad, I was able to take down all the adhesions revealing the infundibulum. The infundibulum was severely inflamed, there was significant inflammatory changes in the hepatocystic triangle that were obscuring all the critical structures. I grasped infundibulum and retracted in the inferolateral direction I then used electrocautery to open the inflammatory runs that were surrounding the patent cystic triangle, I did this in the medial and lateral direction up to the edges of the liver and then I opened the peritoneum lateral to the gallbladder to allow for better exposure. I used sulcus of Rouviere as a landmark for bleeding during deeper structures. I then proceeded to use careful blunt dissection to identify the structures of the hepatocystic triangle I used a combination of [place], and [place] and [place] dissection with suction irrigation. I was able to identify the cystic duct and the cystic artery and a slightly elevated gallbladder from the liver bed, at this point I realized that I will not be able to obtain a critical view of safety so I decided to transect the cystic artery I double clipped the artery proximally and single clipped distally and transected, this allowed for better visualization of the critical structures, I then was able to create a window between the gallbladder and the liver bed and individualize the cystic duct carefully, the procedure was technically difficult but eventually I was able to elevate the lower third of the gallbladder and individualize the cystic duct. The cystic duct appeared partially necrotic. I put 2 proximal clips on the cystic duct and 1 distally and transected and I then remove the gallbladder from the liver bed using electrocautery. Once the gallbladder was removed there was no evidence of active bleeding or bile leak from the liver bed or the area of the clips. The gallbladder was then retrieved via the supraumbilical trocar site in an Endo Catch bag. I then proceeded to aspirate any bile that had leak in the gallbladder bed and proceeded to irrigate the abdomen with 3 L of saline and aspirated. The liquid was clear at the end and no evidence of bleeding was noted. After this I proceeded to close the supraumbilical trocar site with a Basilio-Radha suture passer and 0 Vicryl under direct visualization. I then proceeded to remove the right upper quadrant right flank and epigastric trocars under direct visualization, the left upper quadrant trocar was used to evacuate the pneumoperitoneum and subsequently removed. The wounds were then irrigated with saline. Local anesthesia was infiltrated, hemostasis was achieved and the wounds were closed in layers using #3-0 Vicryl for the subcutaneous tissue #4 Monocryl for the skin. Dermabond was applied. At the end of the procedure all counts were correct, the patient tolerated well the procedure was transferred to PACU in stable condition.
[2024-02-27] MEDS: ketorolac 30 mg/mL INJ 15 MG IVP (19:39)
[2024-02-27] MEDS: famotidine 20 mg/2 mL INJ IVP (19:39)
[2024-02-27] MEDS: sodium chloride 0.9% 1,000 ML 75 ML IV (19:40)
[2024-02-28] MEDS: ketorolac 30 mg/mL INJ 15 MG IVP ×3 (01:15→20:21)
[2024-02-28 03:56] VITALS: BP 96/60; PULSE 94; RESP 16; TEMP 37.2; O2SAT 94
[2024-02-28] MEDS: piperacillin-tazobactam 3.375 GM in sodium chloride 0.9% (plus) 50 ML IV ×3 (05:34→21:54)
[2024-02-28 06:48] LABS: Basophils % 0.1 %; Hematocrit 41.7 % (37-53); Lymphocytes # 1.7 10^3/uL (0.8-4.8); Lymphocytes % 7.9 %; Mean Corpuscular HGB Conc 32.6 g/dL (30-55); Mean Corpuscular Hemoglobin 28.6 pg (27-33); Mean Corpuscular Volume 87.6 fl (82-101); Mean Platelet Volume 9.6 fL (7.4-10.4); Monocytes # 1.8 10^3/uL (0.2-0.9); Monocytes % 8.2 %; Neutrophils # 18.21 10^3/uL (1.8-7.7); Neutrophils % 83.1 %; Nucleated Red Blood Cells % 0 %; Platelet Count 329 10^3/cmm (157-399); Red Blood Count 4.76 10^6/uL (3.85-5.65); Red Cell Distribution Width 12.3 % (12.1-15.1); White Blood Count 21.91 10^3/uL (3.29-11.43)
[2024-02-28 07:16] LABS: Alanine Aminotransferase 68 U/L (0-41); Albumin Level 3.5 g/dL (3.5-5.2); Alkaline Phosphatase 97 U/L (40-130); Anion Gap 16.2 (5-19); Aspartate Amino Transferase 45 U/L (0-40); Blood Urea Nitrogen 17 mg/dL (6-20); Calcium 8.3 mg/dL (8.5-10.5); Carbon Dioxide 23 mmol/L (22-29); Chloride 103 mmol/L (98-107); Creatinine Clr Calc Pharmacy 107.8942; Globulin 2.6 g/dL (1.3-4.6); Glomerular Filtration Rate 81.6 mL/min (90-130); Glucose 126 mg/dL (65-115); Osmolality Calculated 289 mOsm/kg (285-295); Phosphorus 4.3 mg/dL (2.5-4.5); Potassium 4.2 mmol/L (3.5-5.1); Sodium 138 mmol/L (136-145); Total Bilirubin 0.9 mg/dL (0.15-1.2); Total Protein 6.1 g/dL (6.6-8.7)
[2024-02-28 08:00] VITALS: BP 101/62; PULSE 99; RESP 17; TEMP 36.7; O2SAT 96
--- NOTE | 2024-02-28 08:14 | PM.PN ---
Subjective Subjective: Postoperative day 1 status post laparoscopic cholecystectomy for gangrenous acute cholecystitis. Patient doing well having some surgical pain but the pain associated with the gallbladder is gone, he is tolerating diet. Vitals/I&O/Wt Last Vital Signs Temp 98.9 F 02/28/24 03:56 Pulse 94 02/28/24 03:56 Resp 16 02/28/24 03:56 BP 96/60 02/28/24 03:56 Pulse Ox 94 02/28/24 03:56 O2 Del Method Room Air 02/28/24 03:56 O2 Flow Rate 6 02/27/24 18:16 02/27/24 02/28/24 02/28/24 22:59 06:59 14:59 Intake Total 150 / 150 50 / 200 Output Total Balance 130 / 130 50 / 180 Weight last 48 hrs Weight 207 lb 9.6 oz Weight 203 lb 14.4 oz Weight 190 lb Physical Exam GI: OTHER: Abdomen soft appropriately tender to palpation, surgical incisions covered with Dermabond. Data 02/28/24 06:15 02/28/24 06:15 A&P Assessment and plan (1) Acute gangrenous cholecystitis: Plan Patient showing excellent progression after laparoscopic cholecystectomy for acute cholecystitis. White count is 21 today what is expected after intra-abdominal surgery as well as significant inflammation that was encountered during the operation. LFTs are within normal limits with only mild elevation. Bilirubin is normal. The plan is to continue IV antibiotics today continue to give him IV fluids and have him ambulate. If by tomorrow he is feeling better he will be able to transition home. Attestations Medical Necessity Statement*: Patient will require additional 24 hours of hospital stay for management of acute cholecystitis with gangrene Coding Level of Care Code Acute Code for [facility] Diagnoses Acute gangrenous cholecystitis K81.0
[2024-02-28] MEDS: famotidine 20 mg/2 mL INJ IVP ×2 (08:55→20:23)
--- NOTE | 2024-02-28 09:36 | PC.CHAP ---
Pastoral Care Encounter/Spiritual Assessment Type of Contact [] Declined ceo ziff davis visit [] Patient/Family/Request visit [] Outpatient visit [] Follow-up visit [] Physician referral [] Code/Alert [X] Routine visit [] Staff referral [] Actively dying [] Patient sleeping [] Family support [] [] Out of room [] Palliative care [] [] Receiving care in room [] Pre-surgical visit [] Trauma [] Long length of stay [] ICU visit [] Other: Relational/Emotional Strength [X] Patient feels connected with others/family/visitors/staff [] Distress [] Loneliness/isolation [] Abandonment Spirituality of Patient [X] Person of [place] [X] Attends Mosque of their [place] [X] Believes in Prayer [X] Reads Bible or Restoration materials [] There are Spiritual issues to be addressed Scale Operator Interventions [X] Prayer [X] Active listening [X] Non-anxious presence [] Spiritual/emotional support [] Crisis/trauma care [] Spiritual counseling [] Bereavement support [] Provided bereavement packet [] Provided Bible/devotional materials [] Provided toy/stuffed animal, coloring book to patient or family member [] Provided Communion [] Anointing/[place] [] Salvation [] Completed spiritual assessment [] Other: Impact on Illness or Injury [] Angry [] Fearful [] Anxious [] Often cries [] Exhaustion [] Unable to work [] Unable to attend synagogue [] Unable to walk/stand [] Unable to read [] Unable to drive [] Unable to eat/drink [] Unable to sleep [] Unable to be with family [] Patient intubated [] Other: Summary P Time spent with patient 40 Min
[2024-02-28 11:52] VITALS: BP 104/62; PULSE 102; RESP 15; TEMP 36.9; O2SAT 95
[2024-02-28] MEDS: nicotine 21 mg Patch 1 PATCH TRANSDERMA (14:09)
[2024-02-28 15:22] VITALS: BP 94/59; PULSE 105; RESP 16; TEMP 36.9; O2SAT 94
[2024-02-28 20:00] VITALS: BP 104/57; PULSE 104; RESP 20; TEMP 37.1; O2SAT 94
[2024-02-29] VITALS: BP 101/60; PULSE 95; RESP 19; TEMP 36.8; O2SAT 92
[2024-02-29] MEDS: ketorolac 30 mg/mL INJ 15 MG IVP ×2 (02:40→07:36)
[2024-02-29 04:00] VITALS: BP 101/62; PULSE 90; RESP 18; TEMP 36.4; O2SAT 91
[2024-02-29] MEDS: piperacillin-tazobactam 3.375 GM in sodium chloride 0.9% (plus) 50 ML IV (05:35)
[2024-02-29] MEDS: famotidine 20 mg/2 mL INJ IVP (07:36)
[2024-02-29] MEDS: nicotine 21 mg Patch 1 PATCH TRANSDERMA (07:36)
[2024-02-29 08:00] VITALS: BP 92/58; PULSE 83; RESP 15; TEMP 36.7; O2SAT 93
[2024-02-29 08:13] LABS: Basophils % 0.3 %; Eosinophils # 0.2 10^3/uL (0.0-0.8); Eosinophils % 2.6 %; Hematocrit 37.2 % (37-53); Lymphocytes # 2.4 10^3/uL (0.8-4.8); Lymphocytes % 25.9 %; Mean Corpuscular HGB Conc 32.8 g/dL (30-55); Mean Corpuscular Hemoglobin 28.8 pg (27-33); Mean Corpuscular Volume 87.7 fl (82-101); Mean Platelet Volume 9.5 fL (7.4-10.4); Monocytes # 0.9 10^3/uL (0.2-0.9); Neutrophils # 5.67 10^3/uL (1.8-7.7); Neutrophils % 60.8 %; Nucleated Red Blood Cells % 0 %; Platelet Count 309 10^3/cmm (157-399); Red Blood Count 4.24 10^6/uL (3.85-5.65); Red Cell Distribution Width 12.6 % (12.1-15.1); White Blood Count 9.33 10^3/uL (3.29-11.43)
--- NOTE | 2024-02-29 09:16 | PM.DCS ---
Discharge Providers Date of Admission: 02/27/24 17:20 Date of Discharge: February 29, 2024 Attending Provider at Admission: Anil Sifuentes MD Attending Provider at Discharge: Anil Sifuentes MD Primary Care Provider: LUZ MARIA Dia Diagnoses at Discharge Discharge Diagnosis (1) Acute gangrenous cholecystitis: Status: Acute Reason for Visit Reason for Visit: gallbladder problems Hospital Course Hospital Course 43-year-old male admitted to the hospital with acute cholecystitis, he was taken to the OR for laparoscopic cholecystectomy where he was found to have acute gangrenous cholecystitis. He remained in the hospital for additional 24 hours for IV antibiotics initially white count went up to 22, by today white count has normalized. Patient is tolerating diet passing gas ambulating and no significant issues at the moment of discharge. Physical Exam GI: OTHER: Abdomen is soft nontender nondistended. Discharge Data Studies Completed and Pending Pending at discharge Category Date Time Status Pathology: Surgical [PTH] Routine Pth 02/27/24 18:22 Received Laboratory Results WBC 9.33 10^3/uL (3.29-11.43) 02/29/24 07:34 RBC 4.24 10^6/uL (3.85-5.65) 02/29/24 07:34 Hgb 12.20 g/dL (11.27-16.99) 02/29/24 07:34 Hct 37.2 % (37-53) 02/29/24 07:34 MCV 87.7 fl (82-101) 02/29/24 07:34 MCH 28.8 pg (27-33) 02/29/24 07:34 MCHC 32.8 g/dL (30-55) 02/29/24 07:34 RDW 12.6 % (12.1-15.1) 02/29/24 07:34 Plt Count 309 10^3/cmm (157-399) 02/29/24 07:34 MPV 9.5 fL (7.4-10.4) 02/29/24 07:34 Neut % (Auto) 60.8 % 02/29/24 07:34 Lymph % (Auto) 25.9 % 02/29/24 07:34 Nicholas % (Auto) 10.0 % 02/29/24 07:34 Eos % (Auto) 2.6 % 02/29/24 07:34 Baso % (Auto) 0.3 % 02/29/24 07:34 Neut # (Auto) 5.67 10^3/uL (1.8-7.7) 02/29/24 07:34 Lymph # (Auto) 2.4 10^3/uL (0.8-4.8) 02/29/24 07:34 Nicholas # (Auto) 0.9 10^3/uL (0.2-0.9) 02/29/24 07:34 Eos # (Auto) 0.2 10^3/uL (0.0-0.8) 02/29/24 07:34 Baso # (Auto) 0.0 10^3/uL (0.0-0.1) 02/29/24 07:34 Nucleated RBC % (auto) 0 % 02/29/24 07:34 Nucleated RBCs # 0.0 /100WBC 02/29/24 07:34 Sodium 138 mmol/L (136-145) 02/28/24 06:15 Potassium 4.2 mmol/L (3.5-5.1) 02/28/24 06:15 Chloride 103 mmol/L (98-107) 02/28/24 06:15 Carbon Dioxide 23 mmol/L (22-29) 02/28/24 06:15 Anion Gap 16.2 (5-19) 02/28/24 06:15 BUN 17 mg/dL (6-20) 02/28/24 06:15 Creatinine 1.0 mg/dL (0.7-1.2) 02/28/24 06:15 GFR Calculation 81.6 mL/min (90-130) L 02/28/24 06:15 Glucose 126 mg/dL (65-115) H 02/28/24 06:15 Calculated Osmolality 289 mOsm/kg (285-295) 02/28/24 06:15 Calcium 8.3 mg/dL (8.5-10.5) L 02/28/24 06:15 Phosphorus 4.3 mg/dL (2.5-4.5) 02/28/24 06:15 Magnesium 2.0 mg/dL (1.7-2.3) 02/28/24 06:15 Total Bilirubin 0.9 mg/dL (0.15-1.2) 02/28/24 06:15 AST 45 U/L (0-40) H 02/28/24 06:15 ALT 68 U/L (0-41) H 02/28/24 06:15 Alkaline Phosphatase 97 U/L (40-130) 02/28/24 06:15 Total Protein 6.1 g/dL (6.6-8.7) L 02/28/24 06:15 Albumin 3.5 g/dL (3.5-5.2) 02/28/24 06:15 Globulin 2.6 g/dL (1.3-4.6) 02/28/24 06:15 Vitals Last Vital Signs Temp 98.0 F 02/29/24 08:00 Pulse 83 02/29/24 08:00 Resp 15 02/29/24 08:00 BP 92/58 02/29/24 08:00 Pulse Ox 93 02/29/24 08:00 O2 Del Method Room Air 02/29/24 08:00 O2 Flow Rate 6 02/27/24 18:16 Discharge Plan Discharge Patient Disposition: Home Condition: Stable Prescriptions: New polyethylene glycol 3350 [Miralax] 17 gram powder in packet 17 g PO DAILY 7 Days Qty: 7 0RF oxycodone 5 mg tablet 5 mg PO Q8H PRN (Reason: pain) 5 Days Qty: 14 0RF Continued sildenafil [Viagra] 50 mg tablet 50 mg PO DAILY PRN (Reason: sexual activity) 30 Days Qty: 10 2RF Rx Instructions: administer 30 minutes to 4 hours before activity naproxen 250 mg tablet 250 mg PO BID PRN (Reason: pain) Qty: 20 0RF ondansetron 4 mg tablet,disintegrating 4 mg PO Q6H PRN (Reason: nausea and vomiting) Qty: 14 0RF amoxicillin-pot clavulanate 875-125 mg tablet 1 tab PO Q12H 10 Days Qty: 20 0RF Discharge Orders: Discharge Order (Routine); Ordered 02/29/24 Ordered By: Anil Sifuentes Referrals: Ramiro Iraheta FNP [Primary Care Provider] - (Please notify your physician's clinic of the need for a hospital stay follow-up appointment to be scheduled. ) Anil Sifuentes MD [Physician] - (2 weeks) Discharge Diet: Advance as tolerated Discharge Activity: Limit activity as instructed Patient Instructions: Opioid Safety Activity Restrictions/Additional Instructions: No heavy lifting for the next 4 to 6 weeks to prevent hernia. Walk is much as possible this will speed up your recovery. You can shower starting tomorrow let soap and water run over your wounds and then pat dry. Return to the hospital you have severe abdominal pain that is getting worse over time despite pain medication, fever chills or yellowing of your skin. Discharge Attestations Time Spent in Discharge Care*: less than 30 min Quality Metrics Clinical Quality Measures [ No reported AMI, CVA or VTE this stay] Coding Level of Care Code Acute Code for Chg Fwd Diagnoses Acute gangrenous cholecystitis K81.0
[2024-02-29] MEDS: polyethylene glycol 3350 Pkt 17 gm PO (09:44)
[2024-02-29 10:07] VITALS: BP 92/58; PULSE 83; RESP 16; TEMP 36.6; O2SAT 93
--- NOTE | 2024-02-29 10:08 | PC.NURSE ---
Discharge instructions provided to pt. NO questions or concerns voiced at this time. Awaiting ride at this time.
== END 2024-02-29 10:31 | disposition home or self-care (01) ==
LOC: ER 15:07 → OR 15:14 → MEDSURG 17:20
PROVIDERS: Admitting Provider Surgery; Emergency Provider Emergency Medicine; Family Provider Registered Nurse; PCP Registered Nurse; Visit Provider Surgery
PROC: 0FT44ZZ Resection of Gallbladder, Percutaneous Endoscopic Approach (ICD-10-PCS; CPT 47562; principal; 2024-02-27 15:30)
DX: K80.10 Calculus of gallbladder with chronic cholecystitis without obstruction (principal); F17.210 Nicotine dependence, cigarettes, uncomplicated
CPT/HCPCS: 47562; 36415; 80053; 83735; 84100; 85025; 88304; 96365; 99285; G0378; J0131; J1885; J2543; J3490; J7030